=== PATIENT | female | born 1970 | race Caucasian/White ===

== ENCOUNTER 2018-08-23 10:27 | Inpatient (IN) | payer MEDICAID ==
[~2018-08-23] VITALS: Ht 160 cm; Wt 97.7 kg
[2018-08-23] MEDS ORDERED: SODIUM CHLORIDE FLUSH 10ML SYR IVF ONE (11:30)
[2018-08-23] MEDS ORDERED: ONDANSETRON 2MG/ML, 2ML ONE ×2 (11:30→11:55)
[2018-08-23] MEDS ORDERED: ONDANSETRON 2MG/ML, 2ML IVPush ONE (11:30)
[2018-08-23 12:29] LABS: INTERNATIONAL NORMALIZED RATIO 2.1 (0.93-1.1); PROTHROMBIN TIME 21.6 Seconds (9.6-11.5)
[2018-08-23 12:30] LABS: ALANINE AMINOTRANSFERASE 38 U/L (12-78); ALBUMIN 1.9 g/dL (3.4-5.0); ANION GAP 13 mmol/L (5-15); CALCIUM 8.3 mg/dL (8.5-10.1); CHLORIDE 95 mmol/L (98-107); MEAN CORPUSCULAR HEMOGLOBIN 32.9 pg (27.0-34.8); MEAN CORPUSCULAR HGB CONC 33.4 g/dL (32.4-35.8); MEAN CORPUSCULAR VOLUME 98.4 fL (80-100); MEAN PLATELET VOLUME 9.1 fL (7.4-10.4); PLATELET COUNT 183 x10^3/uL (130-400); RED BLOOD COUNT 3.91 x10^6/uL (3.82-5.3); RED CELL DISTRIBUTION WIDTH 29.1 % (9.6-15.2)
[2018-08-23 12:41] LABS: ALKALINE PHOSPHATASE 365 U/L (45-117)
[2018-08-23 12:42] LABS: BASOPHILS # (AUTO) 0.03 x10^3/uL (0-0.1); BASOPHILS % (AUTO) 0 % (0-1); CREATININE 3.13 mg/dL (0.55-1.02); EOSINOPHILS % (AUTO) 0 % (1-7); LYMPHOCYTES # (AUTO) 0.68 x10^3/uL (1-3.4); LYMPHOCYTES % (AUTO) 4 % (22-44); MD MORPH REVIEW ONLY; MONOCYTES # (AUTO) 0.16 x10^3/uL (0.2-0.8); MONOCYTES % (AUTO) 1 % (2-9); NEUTROPHILS % (AUTO) 95 % (42-75); TOTAL PROTEIN 6.4 g/dL (6.4-8.2)
[2018-08-23 12:43] LABS: ANISOCYTOSIS 2+; MICROCYTOSIS 1+; POLYCHROMASIA 1+; TARGET CELLS 1+
[2018-08-23 12:44] LABS: <PLATELET ESTIMATE> ADEQUATE; BILIRUBIN,TOTAL 30.3 mg/dL (0.2-1.0); LARGE PLATELETS 1+
[2018-08-23] MEDS ORDERED: SODIUM CHLORIDE 0.9% 1,000ML IVBOLUS ONE (13:00)
[2018-08-23] MEDS ORDERED: POTASSIUM CHLORIDE 40 MEQ in SODIUM CHLORIDE 0.9% 500 ML IV ONE (13:00)
[2018-08-23] MEDS ORDERED: NS + 40MEQ KCL 1,000 ML IV ONE (13:07)
[2018-08-23] MEDS: NICOTINE 14MG/24 HR PATCH.TD24 TD SCH (14:30)
[2018-08-23] MEDS ORDERED: hydrALAzine 20 MG/ML, 1ML IVPush PRN (14:30)
[2018-08-23] MEDS ORDERED: POTASSIUM CHLORIDE 40 MEQ in SODIUM CHLORIDE 0.9% 1,000 ML IV SCH (14:30)
[2018-08-23] MEDS ORDERED: LABETALOL 5MG/ML, 20ML IVPush PRN (14:30)
[2018-08-23 15:42] VITALS: BP 105/70
[2018-08-23] MEDS: POTASSIUM CHLORIDE 20 MEQ TAB.ER.PRT PO SCH (17:06)
[2018-08-23] MEDS: CEFTRIAXONE PMX 1GM/50ML 50 ML IV SCH (17:15)
[2018-08-23] MEDS: METRONIDAZOLE PMX 500MG/100ML 100 ML IV SCH (18:01)
[2018-08-23 18:16] LABS: HCG UR SG 1.027 (1.003-1.030)
[2018-08-23 18:20] LABS: MICROSCOPIC INDICATED
[2018-08-23 18:26] LABS: CULTURE INDICATED? YES
[2018-08-23 18:38] VITALS: BP 93/61
[2018-08-24] MEDS: METRONIDAZOLE PMX 500MG/100ML 100 ML IV SCH ×5 (00:25→22:57)
[2018-08-24 00:32] VITALS: BP 96/63
[2018-08-24 05:25] LABS: MEAN CORPUSCULAR HGB CONC 34.4 g/dL (32.4-35.8); MEAN PLATELET VOLUME 8.6 fL (7.4-10.4); PLATELET COUNT 150 x10^3/uL (130-400); RED BLOOD COUNT 3.27 x10^6/uL (3.82-5.3); RED CELL DISTRIBUTION WIDTH 29.3 % (9.6-15.2)
[2018-08-24 05:27] LABS: ALBUMIN 1.7 g/dL (3.4-5.0); CALCIUM 7.9 mg/dL (8.5-10.1); CHLORIDE 103 mmol/L (98-107)
[2018-08-24 05:42] LABS: ALANINE AMINOTRANSFERASE 30 U/L (12-78); ALKALINE PHOSPHATASE 284 U/L (45-117); ANION GAP 12 mmol/L (5-15)
[2018-08-24 05:53] LABS: TOTAL PROTEIN 5.4 g/dL (6.4-8.2)
[2018-08-24 05:55] LABS: BILIRUBIN,TOTAL 25.3 mg/dL (0.2-1.0)
[2018-08-24 05:58] LABS: BASOPHILS # (AUTO) 0.12 x10^3/uL (0-0.1); BASOPHILS % (AUTO) 1 % (0-1); EOSINOPHILS # (AUTO) 0.04 x10^3/uL (0-0.4); EOSINOPHILS % (AUTO) 0 % (1-7); LYMPHOCYTES # (AUTO) 2.42 x10^3/uL (1-3.4); LYMPHOCYTES % (AUTO) 16 % (22-44); MD SCAN; MONOCYTES # (AUTO) 0.28 x10^3/uL (0.2-0.8); MONOCYTES % (AUTO) 2 % (2-9); NEUTROPHILS # (AUTO) 12.08 x10^3/uL (1.8-6.8); NEUTROPHILS % (AUTO) 81 % (42-75)
[2018-08-24 06:29] VITALS: BP 95/63
[2018-08-24] MEDS: POTASSIUM CHLORIDE 20 MEQ TAB.ER.PRT PO SCH ×2 (07:54→17:08)
[2018-08-24 09:04] LABS: BILIRUBIN, DIRECT 21.7 mg/dL (0.1-0.2)
[2018-08-24] MEDS: LEVOTHYROXINE 25 MCG TABLET PO SCH (09:16)
[2018-08-24] MEDS: ALBUMIN HUMAN 25% 100 ML IV SCH ×3 (10:01→21:32)
[2018-08-24 12:10] VITALS: BP 108/70
[2018-08-24] MEDS: LIDODERM 5% PATCH TD SCH (12:23)
[2018-08-24] MEDS: NICOTINE 14MG/24 HR PATCH.TD24 TD SCH (14:29)
[2018-08-24] MEDS: CEFTRIAXONE PMX 1GM/50ML 50 ML IV SCH (16:25)
[2018-08-24 20:16] VITALS: BP 96/64
[2018-08-25 02:47] VITALS: BP 99/61
[2018-08-25] MEDS: ALBUMIN HUMAN 25% 100 ML IV SCH ×3 (04:05→20:57)
[2018-08-25 04:35] LABS: CLOSTRIDIUM DIFFICILE ANTIGEN NEGATIVE; CLOSTRIDIUM DIFFICILE TOXIN NEGATIVE (Negative)
[2018-08-25] MEDS: METRONIDAZOLE PMX 500MG/100ML 100 ML IV SCH (05:18)
[2018-08-25] MEDS: LEVOTHYROXINE 25 MCG TABLET PO SCH (05:21)
[2018-08-25 06:24] LABS: MEAN CORPUSCULAR HEMOGLOBIN 34.9 pg (27.0-34.8); MEAN CORPUSCULAR HGB CONC 34.7 g/dL (32.4-35.8); MEAN CORPUSCULAR VOLUME 100.4 fL (80-100); MEAN PLATELET VOLUME 8.3 fL (7.4-10.4); PLATELET COUNT 118 x10^3/uL (130-400); RED BLOOD COUNT 2.89 x10^6/uL (3.82-5.3); RED CELL DISTRIBUTION WIDTH 29.6 % (9.6-15.2)
[2018-08-25 06:30] VITALS: BP 102/67
[2018-08-25 06:30] LABS: ANION GAP 11 mmol/L (5-15); CALCIUM 8.3 mg/dL (8.5-10.1); CHLORIDE 106 mmol/L (98-107)
[2018-08-25 06:34] LABS: CREATININE 1.35 mg/dL (0.55-1.02)
[2018-08-25 06:44] LABS: BASOPHILS # (AUTO) 0.01 x10^3/uL (0-0.1); BASOPHILS % (AUTO) 0 % (0-1); EOSINOPHILS % (AUTO) 0 % (1-7); LYMPHOCYTES # (AUTO) 0.93 x10^3/uL (1-3.4); LYMPHOCYTES % (AUTO) 8 % (22-44); MD SCAN; MONOCYTES # (AUTO) 0.59 x10^3/uL (0.2-0.8); MONOCYTES % (AUTO) 5 % (2-9); NEUTROPHILS # (AUTO) 9.57 x10^3/uL (1.8-6.8); NEUTROPHILS % (AUTO) 86 % (42-75)
[2018-08-25] MEDS: POTASSIUM CHLORIDE 20 MEQ TAB.ER.PRT PO SCH ×2 (08:06→16:29)
[2018-08-25] MEDS ORDERED: POTASSIUM PHOSPHATE 44 MEQ in SODIUM CHLORIDE 0.9% 500 ML IV ONE (08:30)
[2018-08-25 09:02] LABS: BILIRUBIN,INDIRECT 5.2 mg/dL (0.0-2.0)
[2018-08-25 09:06] LABS: BILIRUBIN, DIRECT 21.6 mg/dL (0.1-0.2); BILIRUBIN,TOTAL 26.8 mg/dL (0.2-1.0)
[2018-08-25 12:56] VITALS: BP 98/59
[2018-08-25] MEDS: LIDODERM 5% PATCH TD SCH (13:41)
[2018-08-25] MEDS: FUROSEMIDE 20 MG TABLET PO SCH (14:00)
[2018-08-25] MEDS: NICOTINE 14MG/24 HR PATCH.TD24 TD SCH (14:30)
[2018-08-25 21:14] VITALS: BP 99/61
[2018-08-26] MEDS ORDERED: ONDANSETRON ODT 4 MG PO PRN (02:00)
[2018-08-26] MEDS ORDERED: ONDANSETRON 2MG/ML, 2ML IVPush PRN (02:00)
[2018-08-26] MEDS: ALBUMIN HUMAN 25% 100 ML IV SCH ×3 (02:32→15:55)
[2018-08-26 04:22] VITALS: BP 91/57
[2018-08-26] MEDS: LEVOTHYROXINE 25 MCG TABLET PO SCH (06:04)
[2018-08-26 06:49] VITALS: BP 96/61
[2018-08-26 08:05] LABS: MEAN CORPUSCULAR HEMOGLOBIN 34.8 pg (27.0-34.8); MEAN CORPUSCULAR HGB CONC 33.9 g/dL (32.4-35.8); MEAN CORPUSCULAR VOLUME 102.7 fL (80-100); PLATELET COUNT 126 x10^3/uL (130-400); RED BLOOD COUNT 2.94 x10^6/uL (3.82-5.3); RED CELL DISTRIBUTION WIDTH 29.8 % (9.6-15.2)
[2018-08-26 08:07] LABS: ALANINE AMINOTRANSFERASE 25 U/L (12-78); ALBUMIN 3.3 g/dL (3.4-5.0); ANION GAP 10 mmol/L (5-15); CALCIUM 8.6 mg/dL (8.5-10.1); CHLORIDE 108 mmol/L (98-107)
[2018-08-26 08:18] LABS: ALKALINE PHOSPHATASE 197 U/L (45-117); CREATININE 1.11 mg/dL (0.55-1.02); TOTAL PROTEIN 6.1 g/dL (6.4-8.2)
[2018-08-26 08:51] LABS: MD YES
[2018-08-26] MEDS: POTASSIUM CHLORIDE 20 MEQ TAB.ER.PRT PO SCH ×4 (08:51→17:00)
[2018-08-26] MEDS: FUROSEMIDE 20 MG TABLET PO SCH (08:51)
[2018-08-26 08:53] LABS: BAND#(MANUAL) 0.52 x10^3/uL; BANDS%(MANUAL) 5 % (0-7); LYMPH#(MANUAL) 1.65 x10^3/uL (1-3.4); LYMPHS% (MANUAL) 16 % (22-44); METAMYELOCYTES% (MANUAL) 1 % (0-1); MONOS#(MANUAL) 0.72 x10^3/uL (0.3-2.7); MONOS% (MANUAL) 7 % (2-9); MYELOCYTES% (MANUAL) 1 % (0-0); SEG#(MANUAL) 7.21 x10^3/uL (1.8-6.8); SEGS% (MANUAL) 70 % (42-75)
[2018-08-26 08:54] LABS: <PLATELET ESTIMATE> DECREASED; <PLT MORPHOLOGY> NORMAL PLT MORPH; ANISOCYTOSIS 2+; POLYCHROMASIA 1+
[2018-08-26 08:55] LABS: TARGET CELLS 1+
[2018-08-26] MEDS ORDERED: SPIRONOLACTONE 25 MG TABLET PO SCH (09:00)
[2018-08-26] MEDS ORDERED: LEVO25TA2 PO (10:43)
[2018-08-26] MEDS ORDERED: SPIR25TA PO (10:43)
[2018-08-26] MEDS ORDERED: LACT10SO28 PO (10:43)
[2018-08-26] MEDS ORDERED: FURO20TA3 PO (10:43)
[2018-08-26] MEDS ORDERED: POTA20TA14 PO ×3 (10:43→11:26)
[2018-08-26] MEDS ORDERED: MAGN71.5 PO (10:43)
[2018-08-26] MEDS ORDERED: MAGNESIUM SULFATE PMX 4GM/100M 100 ML IV ONE (11:00)
[2018-08-26] MEDS ORDERED: POTASSIUM PHOSPHATE 44 MEQ in SODIUM CHLORIDE 0.9% 500 ML IV ONE (11:00)
[2018-08-26] MEDS ORDERED: PHOS250T3 PO (11:26)
[2018-08-26 12:28] VITALS: BP 116/56
[2018-08-26] MEDS: LIDODERM 5% PATCH TD SCH (13:21)
[2018-08-26] MEDS: NICOTINE 14MG/24 HR PATCH.TD24 TD SCH (14:30)
[2018-08-26] MEDS ORDERED: RIFA550T4 PO (15:55)
[2018-08-26 16:28] LABS: ALANINE AMINOTRANSFERASE 25 U/L (12-78); ALBUMIN 3.5 g/dL (3.4-5.0); ANION GAP 10 mmol/L (5-15); CALCIUM 8.5 mg/dL (8.5-10.1); CHLORIDE 110 mmol/L (98-107)
[2018-08-26 16:40] LABS: ALKALINE PHOSPHATASE 197 U/L (45-117)
[2018-08-26 16:45] LABS: CREATININE 1.02 mg/dL (0.55-1.02); TOTAL PROTEIN 6.3 g/dL (6.4-8.2)
[2018-08-26 20:00] VITALS: BP 101/66
== END 2018-08-26 22:20 | disposition home or self-care (01) | DRG 441 ==
LOC: ED 13:24 → EDIP 13:39 → 4EST 15:40
PROVIDERS: ADMIT Internal Medicine; ATTEND Internal Medicine
DX: K72.90 Hepatic failure, unspecified without coma (principal); E43 Unspecified severe protein-calorie malnutrition; I81 Portal vein thrombosis; N17.9 Acute kidney failure, unspecified; D68.59 Other primary thrombophilia; E87.1 Hypo-osmolality and hyponatremia; K76.6 Portal hypertension; D72.829 Elevated white blood cell count, unspecified; Z68.38 Body mass index [BMI] 38.0-38.9, adult; E66.01 Morbid (severe) obesity due to excess calories; E86.9 Volume depletion, unspecified; E87.6 Hypokalemia; F10.20 Alcohol dependence, uncomplicated; F17.210 Nicotine dependence, cigarettes, uncomplicated; K74.60 Unspecified cirrhosis of liver; K80.20 Calculus of gallbladder without cholecystitis without obstruction; I95.9 Hypotension, unspecified
CPT/HCPCS: 36415; 74181; 76700; 80048; 80053; 80074; 81001; 81025; 82140; 82247; 82248; 82436; 82570; 83690; 83735; 84100; 84133; 84300; 84443; 85025; 85610; 85730; 87040; 87086; 87324; 93005; 96374; 96375; 99291; G0378; J0696; J2405; J3480; P9047; J3475; J7030; J7040

== ENCOUNTER 2018-10-12 09:40 | Emergency (ER) | payer MEDICAID ==
[~2018-10-12] VITALS: Ht 160 cm; Wt 83.2 kg
[~2018-10-12 09:40] MED LIST: FURO20TA3 PO; LACT10SO28 PO; LEVO25TA2 PO; MAGN71.5 PO; PHOS250T3 PO; POTA20TA14 PO; RIFA550T4 PO; SPIR25TA PO
--- NOTE | 2018-10-12 10:05 | NUR ---
LATE NOTE ENTRY FOR 0949: Pt brought in by EMS with c/o headache for two days, nausea and vomitting and "not feeling herself for the past two days". Pt recieved 4 mg OTD of Zofran by EMS. NADN. All safety measures in place. No needs requested by pt at this time. Pt is AOX4, has unlabored respirations equal bilaterally, no neuro defecits observed. Pt connected to monitors and resting on gurney with call light in reach.
[2018-10-12 10:39] LABS: INTERNATIONAL NORMALIZED RATIO 1.36 (0.93-1.1); PROTHROMBIN TIME 14.2 Seconds (9.6-11.5)
[2018-10-12 10:41] LABS: ALANINE AMINOTRANSFERASE 26 U/L (12-78); ALBUMIN 3.4 g/dL (3.4-5.0); ANION GAP 8 mmol/L (5-15); CALCIUM 8.4 mg/dL (8.5-10.1); CHLORIDE 108 mmol/L (98-107); CREATININE 0.61 mg/dL (0.55-1.02)
--- NOTE | 2018-10-12 10:41 | NUR ---
Pt ambulates to restroom with steady gait and balance with stand by assistance from RN.
[2018-10-12 10:45] LABS: ALKALINE PHOSPHATASE 117 U/L (45-117); BILIRUBIN,TOTAL 2.6 mg/dL (0.2-1.0); TOTAL PROTEIN 8.4 g/dL (6.4-8.2); TROPONIN I < 0.015 ng/mL (0.000-0.045)
[2018-10-12 10:50] LABS: MEAN CORPUSCULAR HEMOGLOBIN 33.8 pg (27.0-34.8); MEAN CORPUSCULAR HGB CONC 34.1 g/dL (32.4-35.8); MEAN PLATELET VOLUME 8.9 fL (7.4-10.4); RED BLOOD COUNT 3.35 x10^6/uL (3.82-5.3); RED CELL DISTRIBUTION WIDTH 14.9 % (9.6-15.2)
[2018-10-12 10:52] LABS: MD YES; PLATELET COUNT 34 x10^3/uL (130-400)
[2018-10-12 10:54] LABS: BASOS#(MANUAL) 0.04 x10^3/uL (0-0.1); BASOS% (MANUAL) 1 % (0-1); MONOS#(MANUAL) 0.21 x10^3/uL (0.3-2.7); MONOS% (MANUAL) 5 % (2-9)
[2018-10-12 10:55] LABS: ANISOCYTOSIS 1+; EOS#(MANUAL) 0.16 x10^3/uL (0.0-0.4); EOS% (MANUAL) 4 % (1-7); LYMPH#(MANUAL) 1.39 x10^3/uL (1-3.4); LYMPHS% (MANUAL) 34 % (22-44); SEGS% (MANUAL) 56 % (42-75)
[2018-10-12 10:56] LABS: <PLATELET ESTIMATE> DECREASED; <PLT MORPHOLOGY> NORMAL PLT MORPH
[2018-10-12 11:27] VITALS: BP 111/63
--- NOTE | 2018-10-12 11:35 | NUR ---
TASK RN: Patient/Caregiver given discharge instructions and they have confirmed that they understand the instructions. Patient ambulatory with steady gait.
== END 2018-10-12 11:50 | disposition home or self-care (01) ==
LOC: ED 10:32
DX: K70.30 Alcoholic cirrhosis of liver without ascites (principal); D69.6 Thrombocytopenia, unspecified; B35.4 Tinea corporis
CPT/HCPCS: 36415; 71046; 80053; 84484; 85025; 85610; 85730; 93005; 99284

== ENCOUNTER 2018-11-04 10:57 | Emergency (ER) | payer MEDICAID ==
[~2018-11-04] VITALS: Ht 160 cm; Wt 86.5 kg
[2018-11-04 11:26] VITALS: BP 149/81
[2018-11-04] MEDS ORDERED: CARBAMIDE PEROXIDE EAR DROPS 6.5%, 15ML EACH EAR ONE (12:00)
[2018-11-04] MEDS ORDERED: CARBAMIDE PEROXIDE EAR DROPS 6.5%, 15ML ONE (12:01)
--- NOTE | 2018-11-04 12:43 | NUR ---
EAR IRRIGATION IN PROGRESS PER INE[facility] CISNEROS TECH.
[2018-11-04] MEDS ORDERED: SPIR25TA5 PO (12:52)
[2018-11-04] MEDS ORDERED: KETO15CR2 TP (12:52)
[2018-11-04] MEDS ORDERED: FOLI-17 PO (12:52)
[2018-11-04] MEDS ORDERED: LACT10SO PO (12:52)
[2018-11-04] MEDS ORDERED: [UNRECOGNIZED DRUG - CODE] PO (12:52)
[2018-11-04] MEDS ORDERED: POTA20TA89 PO (12:52)
[2018-11-04] MEDS ORDERED: LEVO25TA4 PO (12:52)
== END 2018-11-04 13:38 | disposition home or self-care (01) ==
LOC: ED 13:25
DX: H61.21 Impacted cerumen, right ear (principal); H60.13 Cellulitis of external ear, bilateral; H65.01 Acute serous otitis media, right ear
CPT/HCPCS: 99283

== ENCOUNTER 2020-12-08 15:10 | Emergency (ER) | payer MEDICAID ==
[~2020-12-08] VITALS: Ht 160 cm; Wt 77.5 kg
[~2020-12-08 15:10] MED LIST changes: +FOLI1TAB32 PO; +KETO15CR17 TP; +LACT10SO2 PO; +LEVO25TA4 PO; +POTA20TA89 PO; +SPIR25TA5 PO; +[UNRECOGNIZED DRUG - CODE] PO
[2020-12-08 15:16] VITALS: BP 136/73
[2020-12-08 17:03] LABS: MEAN CORPUSCULAR HEMOGLOBIN 29.7 pg (27.0-34.8); MEAN PLATELET VOLUME 7.4 fL (7.4-10.4); PLATELET COUNT 65 x10^3/uL (130-400); RED BLOOD COUNT 3.03 x10^6/uL (3.82-5.3); RED CELL DISTRIBUTION WIDTH 21.4 % (9.6-15.2)
[2020-12-08 17:05] LABS: MD YES
[2020-12-08 17:10] LABS: ALANINE AMINOTRANSFERASE 19 U/L (12-78); ALBUMIN 1.7 g/dL (3.4-5.0); ANION GAP 9 mmol/L (5-15); CALCIUM 7.2 mg/dL (8.5-10.1); CHLORIDE 114 mmol/L (98-107); CREATININE 1.73 mg/dL (0.55-1.02)
[2020-12-08 17:12] LABS: ALKALINE PHOSPHATASE 158 U/L (45-117); BILIRUBIN,TOTAL 0.5 mg/dL (0.2-1.0); TOTAL PROTEIN 5.5 g/dL (6.4-8.2)
[2020-12-08 18:37] LABS: BAND#(MANUAL) 0.03 x10^3/uL; BANDS%(MANUAL) 1 % (0-7); BASOS#(MANUAL) 0.08 x10^3/uL (0-0.1); BASOS% (MANUAL) 3 % (0-1); EOS#(MANUAL) 0.28 x10^3/uL (0.0-0.4); EOS% (MANUAL) 10 % (1-7); LYMPH#(MANUAL) 0.73 x10^3/uL (1-3.4); LYMPHS% (MANUAL) 26 % (22-44); MONOS#(MANUAL) 0.25 x10^3/uL (0.3-2.7); MONOS% (MANUAL) 9 % (2-9); MYELOCYTES# (MANUAL) 0.03 x10^3/uL (0-0); MYELOCYTES% (MANUAL) 1 % (0-0); SEGS% (MANUAL) 50 % (42-75)
[2020-12-08 18:39] LABS: OVALOCYTES 1+; POLYCHROMASIA 1+
[2020-12-08 18:41] LABS: <PLATELET ESTIMATE> DECREASED; <PLT MORPHOLOGY> NORMAL PLT MORPH; ANISOCYTOSIS 1+
== END 2020-12-08 18:46 | disposition left against medical advice (07) ==
LOC: ED 15:58
DX: R10.84 Generalized abdominal pain (principal); Z48.01 Encounter for change or removal of surgical wound dressing; F17.200 Nicotine dependence, unspecified, uncomplicated
CPT/HCPCS: 36415; 80053; 85025; 99283

== ENCOUNTER 2020-12-11 14:41 | Emergency (ER) | payer MEDICAID, MEDICARE ==
[~2020-12-11] VITALS: Ht 160 cm; Wt 81.9 kg
--- NOTE | 2020-12-11 15:15 | NUR ---
FIRST PT CONTACT: PT HAS COMPLAINTS THAT [facility] DISCHARGED HER, PT PROCEDED TO TAKE BUS TO [facility] WHERE SHE STATED " I DRANK A 1/2 PINT OF VODKA AND GAMBLED A BIT, THEN THEY CALLED [facility]". PT A&O X4, SITTING UP IN BED, TALKING IN LONG SENTENCES WITH EYES CLOSED. PLACED ON BP AND O2 MONITORS. NADN. WARM BLANKETS PROVIDED.
[2020-12-11] MEDS ORDERED: ONDANSETRON ODT 4 MG PO ONE (16:30)
[2020-12-11] MEDS ORDERED: THIAMINE 100MG TABLET PO ONE (16:30)
[2020-12-11] MEDS ORDERED: ONDANSETRON ODT 4 MG ONE (16:37)
[2020-12-11] MEDS ORDERED: THIAMINE 100MG TABLET ONE (16:37)
[2020-12-11 16:46] VITALS: BP 134/78
--- NOTE | 2020-12-11 16:47 | NUR ---
pt medicated per MAR
[2020-12-11 16:48] LABS: ALBUMIN 1.8 g/dL (3.4-5.0); ANION GAP 13 mmol/L (5-15); CALCIUM 7.1 mg/dL (8.5-10.1); CHLORIDE 111 mmol/L (98-107)
[2020-12-11 16:50] LABS: SALICYLATE LEVEL < 1.7 mg/dL (2.8-20.0)
[2020-12-11 16:52] LABS: BASOPHILS % (AUTO) 2 % (0-1); EOSINOPHILS % (AUTO) 3 % (1-7); LYMPHOCYTES % (AUTO) 24 % (22-44); MEAN CORPUSCULAR HEMOGLOBIN 29.6 pg (27.0-34.8); MEAN CORPUSCULAR HGB CONC 33.4 g/dL (32.4-35.8); MEAN PLATELET VOLUME 7.8 fL (7.4-10.4); MONOCYTES % (AUTO) 9 % (2-9); NEUTROPHILS % (AUTO) 63 % (42-75); PLATELET COUNT 62 x10^3/uL (130-400); RED CELL DISTRIBUTION WIDTH 20.9 % (9.6-15.2)
[2020-12-11 16:56] LABS: MD NO
[2020-12-11 17:01] LABS: ALANINE AMINOTRANSFERASE 25 U/L (12-78); ALKALINE PHOSPHATASE 201 U/L (45-117); BILIRUBIN,TOTAL 0.7 mg/dL (0.2-1.0); CREATININE 1.65 mg/dL (0.55-1.02); TOTAL PROTEIN 5.6 g/dL (6.4-8.2)
--- NOTE | 2020-12-11 17:36 | NUR ---
pt resting in bed, eyes closed, NADN
--- NOTE | 2020-12-11 18:07 | NUR ---
pt ambulatory with steady gait to restroom, UA collected, diet tray ordered.
[2020-12-11 18:15] LABS: MICROSCOPIC AUTO
[2020-12-11 18:26] LABS: AMPHETAMINE SCREEN, URINE Negative (Negative); BARBITURATE SCREEN, URINE Negative (Negative); BENZODIAZEPINE SCREEN, URINE Negative (Negative); CANNABINOID SCREEN, URINE Negative (Negative); COCAINE SCREEN, URINE Negative (Negative); METHADONE SCREEN, URINE Negative (Negative); OPIATE SCREEN, URINE Negative (Negative)
--- NOTE | 2020-12-11 18:31 | NUR ---
Pt provided meal tray. Pt denies other needs.
--- NOTE | 2020-12-11 18:49 | NUR ---
report received from norma MOISE and Mindy MOISE. i assume care at this time
--- NOTE | 2020-12-11 19:57 | NUR ---
[facility]S ALL AT CAPACITY THUS SW CONSULTERD. NO AVAILABLE OPTIONS. PROVIDED WITH ADDITIONAL CLOTHING / TAXI VOUCHER/ LIST OF RESOURCES IN TOWN
== END 2020-12-11 20:02 | disposition home or self-care (01) ==
LOC: ED 19:55
DX: F10.220 Alcohol dependence with intoxication, uncomplicated (principal); Z72.9 Problem related to lifestyle, unspecified; R42 Dizziness and giddiness; R11.2 Nausea with vomiting, unspecified; R20.2 Paresthesia of skin; R06.89 Other abnormalities of breathing; F17.200 Nicotine dependence, unspecified, uncomplicated; Y90.0 Blood alcohol level of less than 20 mg/100 ml
CPT/HCPCS: 36415; 71045; 80053; 80299; 80307; 80320; 80329; 81001; 85025; 87077; 87086; 99284; Q0162; 87186; G0480